=== PATIENT | female | born 1990 | race Two or more races ===

== ENCOUNTER 2024-03-31 04:17 | Emergency (ER) | payer BC ==
[~2024-03-31] VITALS: Ht 162.6 cm; Wt 69.9 kg
[2024-03-31 05:52] LABS: ALBUMIN 4.1 gm/dL (3.4-5.0); BILIRUBIN TOTAL 0.39 mg/dL (0.3-1.2); CALCIUM 9.7 mg/dL (8.5-10.1); CREATININE SERUM 0.88 mg/dL (0.55-1.02); GFR 74.46; GLOBULINA 3.7 G/DL (2.4-3.5); POTASSIUM 3.58 mEq/L (3.5-5.1); TOTAL PROTEIN 7.8 gm/dL (6.4-8.2)
[2024-03-31 06:00] LABS: INR 0.99; PARTIAL THROMBOPLASTIN TIME 27.1 SECONDS (22.0-34.0); PROTHROMBIN TIME 10.8 SECONDS (9.0-11.5)
[2024-03-31 06:19] LABS: HEMATOCRIT 39.4 % (36.0-45.00); MEAN CELL VOLUME 91.2 fL (80.00-100.00); MEAN CORPUSCULAR HEMOGLOBIN 32.5 pg (27.00-32.0); MEAN CORPUSCULAR HGB CONC 35.6 g/dl (32.0-36.0); PLATELET COUNT 285 K/uL (150-450); RED BLOOD COUNT 4.32 M/uL (4.00-6.00); RED CELL DISTRIBUTION WIDTH 12.2 % (11.5-14.5)
[2024-03-31 06:32] LABS: PH,URINE 6.5 (5.0-8.0); URINE APPEARANCE Clear; URINE BILIRRUBIN Negative (NEGATIVE); URINE BLOOD Negative; URINE COLOR Yellow; URINE GLUCOSE Negative (NEGATIVE); URINE KETONE Negative (NEGATIVE); URINE LEUKOCYTE Small; URINE NITRATE Negative; URINE PROTEIN Negative (NEGATIVE); URINE UROBILINOGEN 0.2 E.U./dl
[2024-03-31 06:34] LABS: URINE BACTERIA 263.2 uL (0.0-1933); URINE EPITHELIAL CELLS 90.5 uL (0.0-38.8); URINE RBC 18.4 uL (0.0-20.8); URINE WBC 39.5 uL (0.0-23.2)
== END 2024-03-31 08:10 ==
LOC: ER 04:17 → EDBD 04:40 → ER 08:10
PROVIDERS: General Practice
DX: R55 Syncope and collapse (principal)